=== PATIENT | male | born 2000 | race Caucasian/White ===

== ENCOUNTER 2018-08-28 00:56 | Emergency (ER) | payer OTHER, SELFPAY ==
[2018-08-28 00:56] VITALS: BP 129/90; PULSE 80; RESP 16; TEMP 36.7; O2SAT 97; BMI 20.2
--- NOTE | 2018-08-28 01:00 | RAD_ITS ---
STUDY: X-RAY - RIGHT HAND REASON FOR EXAM: Male, 18 years old. laceration to posterior rt 3rd MCP joint TECHNIQUE: 3 view(s) of the hand. COMPARISON: None. FINDINGS: Normal radiocarpal articulation. Normal distal radioulnar joint. Normal visualized carpal bones. Normal carpal articulations Normal carpometacarpal articulation of the thumb. Normal second through fifth carpometacarpal joints. Normal metacarpi. There is a healed fracture of the fourth metacarpal with hardware from prior internal fixation in position. Normal metacarpophalangeal joint of the thumb. Normal interphalangeal joint of the thumb. Normal proximal and distal phalanges of the thumb. Normal metacarpophalangeal joints of the second through fifth fingers. Normal proximal and distal interphalangeal joints of the second through fifth fingers. Normal phalanges of the second through fifth fingers. The soft tissue structures are unremarkable. RAD/Hand Min 3 Views IMPRESSION: No acute bone injury of the hand. Electronically Signed: Tigist Hernandez MD at 1:36 EST Tel , Service support ,
--- NOTE | 2018-08-28 01:03 | ED.VISSUMM ---
- ER Visit Summary Date of Service: 08/28/18 Chief Complaint: Right hand injury History of Present Illness: The patient is a 18 M who hit the back of his right hand on a piece of sheet metal air vent at work. He has a laceration of the third MCP joint. He is right-hand dominant. He has full range of motion with no paresthesias. He is unsure of his last tetanus update. Physical Examination: Vital signs unremarkable. Right upper extremity examination significant for 2 cm U-shaped laceration over the right third MCP joint. He has full range of motion. Normal cap refill and sensation distally. Test Results: Right hand x-ray is unremarkable. Emergency Department Course and Treatment: Wound is anesthetized with 2 cc of 1% lidocaine. Wound was thoroughly irrigated. Skin is closed with 4 simple interrupted sutures of 5-0 nylon. Dressing is applied. Tetanus is updated. Treatment Plan: Follow up with [facility] in 5-7 days for suture removal Disposition: Discharge Impression: Right hand laceration status post suture This note was generated with [employer] dictation software. It may contain incorrect words, spelling, and punctuation that were not noted in review of the chart prior to signing ED Disposition - Plan for ED Patient: Chief Complaint: Laceration Referrals: Care Physician,No Primary [Primary Care Provider] -
--- NOTE | 2018-08-28 01:48 | ED.DEP ---
ED Disposition - Plan for ED Patient: Disposition: Home or Assisted Living Chief Complaint: Laceration Instructions: ED Laceration Hand Referrals: [facility] [GROUP OF PHYSICIANS] - 7 Days for suture removal
[2018-08-28] MEDS: Diphth,Pertuss(Acell),Tet Vac 0.5 ML Vial IM (01:57)
[2018-08-28 02:06] VITALS: BP 123/70; PULSE 64; RESP 12; O2SAT 95
== END 2018-08-28 02:06 | disposition home or self-care (01) ==
LOC: ED 02:03
PROVIDERS: Emergency Provider Emergency Medicine
DX: S61.411A Laceration without foreign body of right hand, initial encounter (principal); Z23 Encounter for immunization; Z72.0 Tobacco use; W26.9XXA Contact with unspecified sharp object(s), initial encounter; Y93.89 Activity, other specified; Y92.89 Other specified places as the place of occurrence of the external cause; Y99.0 Civilian activity done for income or pay
CPT/HCPCS: 12001; 73130; 90471; 90715; 99283

== ENCOUNTER → 2020-08-11 17:52 | Outpatient (CLI) | payer MEDICAID, SELFPAY | PROVIDERS: Referring Provider Nurse Practitioner Family; Visit Provider Nurse Practitioner Family | DX: Z20.828 Contact with and (suspected) exposure to other viral communicable diseases (principal); J02.9 Acute pharyngitis, unspecified | CPT/HCPCS: 87635; C9803; U0003 ==

== ENCOUNTER 2021-02-08 18:59 | Emergency (ER) | payer MEDICAID, SELFPAY ==
[2021-02-08 18:59] VITALS: BP 150/90; PULSE 95; RESP 16; TEMP 36.1; O2SAT 96; BMI 22.4
--- NOTE | 2021-02-08 21:58 | ED.RN ---
patient went out to car around 1999 to see his girlfriend and didnt come back it. Then was marked as LWBS. Pt now came back in stating he had to take his girlfriend home because she wasn't feeling well. now wishes to be seen. original encounter pulled back up.
[2021-02-08 21:59] VITALS: BP 140/84; PULSE 109; RESP 18; TEMP 36.1; O2SAT 98
--- NOTE | 2021-02-08 22:06 | ED.VIS.GEN ---
History of Present Illness Chief Complaint: Ear Problem Informant: Patient Onset: Hours Context: Sudden Onset Timing: Continuous Quality: Popping sensation and blood Location: Left ear Current Severity: Mild Maximum Severity: Moderate Worsened by: Nothing Relieved by: Nothing Associated Symptoms: Decreased hearing after using Q-tip Narrative: Patient is 20-year-old male who presents with a popping sensation in his ear followed by blood. He states he attempted to clean the wax out with a Q-tip. He states the popping and bleeding started before he attempted to clean the wax out of his ears. He does have mild nasal congestion. He denies fever or chills. He denies headache. He denies photophobia or visual change. He denies neck pain or neck stiffness. He denies sore throat. He denies change in voice. He denies cough. He denies myalgias or arthralgias. Prior similar symptoms: No Recent Illness/Hospitalization: No - Past Medical History (1) No significant past medical history Status: Acute Past Medical History - Allergies and Home Meds Allergies/Adverse Reactions: Allergies No Known Allergies Allergy (Verified 02/08/21 19:01) Primary Care Physician: Care Physician,No Primary [Primary Care Provider] - Prior records reviewed: No Past Medical History: None Surgical History: no surgical history Lives: Alone Smoking Status: Former smoker Alcohol: Rare Drugs: None Review of Systems General: Denies: Chills, Fever, Malaise Eyes: Denies: Visual changes - bilaterally, Blurred Vision - bilaterally ENT: Reports: Left ear pain. Denies: Rhinorrhea, Sore throat Cardiovascular: Denies: Chest pain, Palpitations Respiratory: Denies: Dyspnea, Cough, Dyspnea on exertion Gastrointestinal: Denies: Abdominal pain, Nausea, Vomiting Musculoskeletal: Denies: Myalgias, Arthralgias, Neck pain Skin: Denies: Rash Neurological: Denies: Headache Physical Exam Vital Signs/Narrative: Vital Signs Temp Pulse Resp BP Pulse Ox 02/08/21 21:59 96.9 F L 109 H 18 140/84 H 98 02/08/21 18:59 97 F L 95 16 150/90 H 96 Inital Vital Signs reviewed: Yes General: Well nourished, Well developed, No Acute Distress Head: Normocephalic, Atraumatic Eyes: Perrl, Pale conjunctiva ENT: Moist mucous membranes, No rhinorrhea, - - Unable to visualize left TM due to cerumen impaction. Neck: Supple, Nontender, No lymphadenopathy, No JVD Cardiovascular: Regular rate, Regular rhythm, No murmurs, Normal S1, Normal S2 Respiratory: No distress, CTA bilaterally Skin: Normal color, No rash Neurological: Alert, Oriented x3, Cranial nerves II-XII grossly intact, Normal Strength, Normal Sensation Psychological: Normal affect Diagnostic/Tx/Re-eval - Medical Decision Making Patient occluded the left external auditory canal when he attempted to clean the wax out. We will have nurse Debrox and will attempt to remove the cerumen. Once this has been performed will visualize the left TM to determine if there is a perforation and the source of the bleeding. Approximately 25 to 30% of the wax was removed. The TM is visualized. There is slight erythema. Bleeding is from the external auditory canal due to trauma. He does have pain with pushing on the tragus and pulling on the auricle. He probably has developed this secondary otitis externa/infection. Will treat with otic drops. ED Disposition - Plan for ED Patient: Disposition: Home or Assisted Living Diagnosis: Otitis externa of left ear, Hemorrhagic otitis externa of left external auditory canal, Impacted cerumen of left ear Instructions: ED External Ear Infection (Adult), CERUMEN IMPACTION, Home Care Prescriptions: Neomyc/Colist/Hydrocort/Thonzn [Cortisporin-Tc Ear Suspension] 5 ml OT 4X/DAY #1 drops.susp Transmission Status: Pending to [id number] Referrals: Care Physician,No Primary [Primary Care Provider] - Dacia Burris DO [STAFF PHYSICIAN] - 1 Week if not improving
[2021-02-08] MEDS: Carbamide Peroxide 15 ML Bottle 5 DRP OTIC (22:15)
== END 2021-02-08 23:08 | disposition home or self-care (01) ==
PROVIDERS: Emergency Provider Emergency Medicine
DX: H60.92 Unspecified otitis externa, left ear (principal); H61.23 Impacted cerumen, bilateral; Z87.891 Personal history of nicotine dependence
CPT/HCPCS: 99283

== ENCOUNTER 2021-02-10 13:15 | Emergency (ER) | payer MEDICAID, SELFPAY ==
[2021-02-10 13:15] VITALS: BP 123/90; PULSE 107; RESP 18; TEMP 36.1; O2SAT 98; BMI 22.1
--- NOTE | 2021-02-10 13:22 | RAD_ITS ---
STUDY: X-RAY - RIGHT HAND REASON FOR EXAM: Right hand pain, laceration, right hand injury. TECHNIQUE: 3 view(s) of the hand. COMPARISON: Radiographs 08/28/2018. FINDINGS: Normal radiocarpal articulation. Normal distal radioulnar joint. Normal visualized carpal bones. Normal carpal articulations Normal carpometacarpal articulation of the thumb. Normal second through fifth carpometacarpal joints. There is orthopedic hardware of the fourth metacarpal transfixing a healed fracture. Normal metacarpophalangeal joint of the thumb. Normal interphalangeal joint of the thumb. Normal proximal and distal phalanges of the thumb. Normal metacarpophalangeal joints of the second through fifth fingers. Normal proximal and distal interphalangeal joints of the second through fifth fingers. Normal phalanges of the second through fifth fingers. The soft tissue structures are unremarkable. RAD/Hand Min 3 Views IMPRESSION: Healed fourth metacarpal fracture with orthopedic hardware. Electronically Signed: Redd Wright MD at 13:58 EDT Tel , Service support ,
--- NOTE | 2021-02-10 13:31 | ED.DCSUM_ITS ---
- ER Visit Summary Date of Service: 02/10/21 Chief Complaint: Hand injury and laceration History of Present Illness: The patient is a 20 M medical history of a right hand metacarpal fracture which she had surgically repaired. States his tetanus is up-to-date in the last several years. He was showing a cabinet when hand on the cabinet caused a laceration to the palmar aspect of his hand bowel by the base. This occurred within the last hour. He is complaining of pain in the laceration. Denies any other injuries. Physical Examination: Well-appearing young male. Accompanied by significant other. Vital signs stable afebrile. HEENT exam unremarkable. Lungs are clear. Heart regular rhythm. Right hand at the base of his right hand he has a rectangular wound that will need to be cleaned, explored and closed. There is a flap of skin on the wound. There is no gross bony deformity. He is able to open close his hand and flex extend his right wrist. He has had prior surgery of his right hand mid metacarpal. Hand is neurovascularly intact. Otherwise exam unremarkable. Test Results: Right hand x-ray 3 views interpreted by myself showed no acute abnormality. No fracture. Prior hardware looks good. Also read by the radiologist and agrees. Discussed results with patient. Emergency Department Course and Treatment: Right palm rectangular laceration with flap. Patient removed the flap of skin. Locally anesthetized with let and then subcu lidocaine. Washed with Shur-Clens. Explored. Rinse with saline. Irrigated well. Closed using 4 simple interrupted 5-0 Ethilon sutures. Proper hemostasis wound closure obtained. Patient tolerated procedure well. Treatment Plan: Wound care. Return for any signs of infection. Suture removal in 7 to 10 days. Disposition: dc Impression: Right hand laceration with ER repair of 2-1/2 to 3 cm This note was generated with [employer] dictation software. It may contain incorrect words, spelling, and punctuation that were not noted in review of the chart prior to signing ED Disposition - Plan for ED Patient: Referrals: Care Physician,No Primary [Primary Care Provider] -
[2021-02-10] MEDS: Lidocaine/Epi/Tetracaine 50 ML 1 APPLIC TOPICAL (13:57)
[2021-02-10] MEDS: Ibuprofen 600 MG Tablet PO (13:58)
[2021-02-10] MEDS: Lidocaine 1% (20 ml mdv) 20 ML Vial 6 ML INFILT (14:17)
--- NOTE | 2021-02-10 15:11 | ED.DEP ---
ED Disposition - Plan for ED Patient: Disposition: Home or Assisted Living Instructions: ED Laceration, Hand: All Closures Referrals: Ismael Quiros MD [STAFF PHYSICIAN] - 10 Day for suture removal Additional Instructions: Watch for any signs of infection such as pus, red streaks, fever, swelling or increasing pain is seen return. Ice and elevate to decrease pain and swelling. Tylenol and Motrin for pain. Clean daily with soap and water or peroxide and water. Dry carefully. Do not soak. Suture removal in 10 days.
[2021-02-10 15:27] VITALS: PULSE 100; RESP 16; O2SAT 98
== END 2021-02-10 15:28 | disposition home or self-care (01) ==
PROVIDERS: Emergency Provider Emergency Medicine
DX: S61.411A Laceration without foreign body of right hand, initial encounter (principal); X58.XXXA Exposure to other specified factors, initial encounter
CPT/HCPCS: 12002; 73130; 99284

== ENCOUNTER 2021-04-24 00:12 | Emergency (ER) | payer MEDICAID, SELFPAY ==
[2021-04-24 00:12] VITALS: BP 145/78; PULSE 85; RESP 16; TEMP 36.7; BMI 23.7
--- NOTE | 2021-04-24 00:15 | RAD_ITS ---
STUDY: X-RAY - RIGHT HAND REASON FOR EXAM: Male, 21 years old. trauma TECHNIQUE: 3 view(s) of the hand. COMPARISON: 02/10/2021. FINDINGS: Normal radiocarpal articulation. Normal distal radioulnar joint. Normal visualized carpal bones. Normal carpal articulations Normal carpometacarpal articulation of the thumb. Normal second through fifth carpometacarpal joints. Postoperative changes with fixation plates of the fourth metacarpal bone. Otherwise normal metacarpi. Normal metacarpophalangeal joint of the thumb. Normal interphalangeal joint of the thumb. Normal proximal and distal phalanges of the thumb. Normal metacarpophalangeal joints of the second through fifth fingers. Normal proximal and distal interphalangeal joints of the second through fifth fingers. Normal phalanges of the second through fifth fingers. The soft tissue structures are unremarkable. RAD/Hand Min 3 Views IMPRESSION: Postoperative changes at the fourth metacarpal bone as described. Otherwise normal x-ray of the right hand. Specifically, no acute fracture or subluxation. Electronically Signed: Jade Morris MD at 0:37 EDT , Service support ,
--- NOTE | 2021-04-24 00:33 | EX.ED.UPPERE ---
HPI History of Present Illness Chief Complaint: Upper Extremity Injury Detail of Chief Complaint: Right hand pain Informant: patient Occured/Mechanism Comment: Punched a microwave Onset/Context/Timing Onset: Today Current Severity: Mild Maximum Severity: Moderate Narrative Narrative: Patient presents due to concern for fracture of the right hand. Patient states he was upset and punched a microwave. He has had prior fracture to this hand in the past and had surgery to his fourth metacarpal. He is concerned he may have broken the fifth. PFSH PFS Medical History Bipolar disorder Depression Home Medications NK 02/10/21 [History Last Taken Unknown] Allergy/AdvReac Type Severity Reaction Status Date / Time No Known Allergies Allergy Verified 04/24/21 00:23 Social History Smoking Status: Former smoker ROS ROS ED Constitutional Constitutional ED: Denies chills or fever(s) Eyes Eyes: Denies change in vision ENT ENT ED: Denies sore throat Cardiovascular Cardiovascular: Denies chest pain Respiratory/Chest Respiratory/Chest: Denies cough or dyspnea Gastrointestinal Gastrointestinal: Denies abdominal pain, diarrhea, nausea or vomiting Genitourinary Genitourinary ED: Denies dysuria Musculoskeletal Musculoskeletal: Reports other Details: Right hand pain ; Denies back pain Integumentary Denies rash Neurologic Neurologic: Denies headache(s) or weakness Psychiatric Psychiatric: Denies anxiety or depression Endocrine Endocrinology: Denies polydipsia or polyuria Allergic/Immunologic Allergic/Immunologic ED: Denies urticaria EXAM Physical Exam Const Vital Signs: 04/24/21 00:12 Temperature 98.0 F Temperature Source Temporal Pulse Rate 85 Respiratory Rate 16 Blood Pressure 145/78 H Blood Pressure Mean 100 Positive well nourished and well developed General Appearance ED: well developed HEENT normocephalic Eyes PERRL and EOMs intact bilaterally Neck supple Chest Wall inspection of chest normal and palpation of chest normal Resp normal respiratory effort and clear to auscultation bilaterally Cardio regular rate and regular rhythm GI non-tender Palpation: soft Extremity Extremity Narrative: Abrasions noted over the knuckles of the right hand. No full-thickness laceration requiring repair. Edema and tenderness over the fifth metacarpal. Well-healed surgical scar over the fourth metacarpal. Neuro oriented x3 and no sensory deficits noted Sensorium / Orientation: alert Motor Exam: strength 5/5 throughout Skin Skin Narrative: Abrasions as noted above. MDM MDM MDM Narrative Medical decision making narrative: Right hand x-rays were obtained per nursing protocol. Radiography Diagnostic Testing: Radiology Impression Hand X-Ray 04/24/21 00:15 IMPRESSION: Postoperative changes at the fourth metacarpal bone as described. Otherwise normal x-ray of the right hand. Specifically, no acute fracture or subluxation. Electronically Signed: Jade Morris MD at 0:37 EDT , Service support , Treatment and Re-Evaluation Comments:: I am interpretation of the x-ray no acute fracture is noted. Radiology interpretation is reviewed. Patient updated. Wounds are cleansed and dressed. Patient is referred to local PCP to establish primary care. Discharge Plan Triage Chief Complaint: Upper Extremity Injury ED Provider: Jailene Rodríguez Dx/Rx/DC Orders Clinical Impression: Contusion of hand, right Instructions: ED Hand Contusion Prescriptions: No Action NK RF: 0 Primary Care Provider: Care Physician,No Primary Referrals: Gissel Frank MD [STAFF PHYSICIAN] - As Needed Care Physician,No Primary [Primary Care Provider] - Disposition Disposition: Home, Self Care Discharge Date/Time: 04/24/21 01:03
== END 2021-04-24 01:03 | disposition home or self-care (01) ==
LOC: ED 00:53
PROVIDERS: Emergency Provider Emergency Medicine
DX: S60.221A Contusion of right hand, initial encounter (principal); X58.XXXA Exposure to other specified factors, initial encounter; Z87.891 Personal history of nicotine dependence
CPT/HCPCS: 73130; 99282

== ENCOUNTER 2021-06-20 17:57 | Emergency (ER) | payer MEDICAID, SELFPAY ==
[2021-06-20 17:58] VITALS: BP 134/85; PULSE 97; RESP 16; TEMP 36.7; O2SAT 97; BMI 22.1
--- NOTE | 2021-06-20 19:57 | EKG12_ITS ---
Test Reason : DYSRHYTHMIA Blood Pressure : / mmHG Vent. Rate : 069 BPM Atrial Rate : 069 BPM P-R Int : 114 ms QRS Dur : 088 ms QT Int : 362 ms P-R-T Axes : -07 075 055 degrees QTc Int : 387 ms Normal sinus rhythm with sinus arrhythmia Normal ECG No previous ECGs available Confirmed by SCOTTY MCCOY, ROMELIA ([id number]), editor producer ABI ACUNA ([id number]) on 06/28/2021 8:42:07 AM Referred By: MICHAEL Confirmed By:YESENIA FAJARDO MD
--- NOTE | 2021-06-20 20:04 | EX.ED.DYSGE1 ---
HPI History of Present Illness Chief Complaint: Syncope Detail of Chief Complaint: Passed out Informant: patient and spouse/S.O. Onset/Context/Timing Onset: Today and Hours Current Severity: Gone Maximum Severity: Mild Narrative Narrative: 21-year-old male denies any segment past medical history. States he is currently on no medications. Denies any cardiac disease. No history of seizures. Said when he was a child he would pass out from time to time. Especially in the hot shower. This morning around 4 AM he went to the bathroom he was urinating felt lightheaded passed out hit his head. Girlfriend was there. She denies seizure activity. Said his eyes were open and he just looked dazed. He was not responding for about 30 seconds to a minute. He denies any complaints currently. No headache. No neck pain. No recent illness. Prior similar symptoms: Yes Recent Illness/Hospitalization: No PFSH PFS Medical History Bipolar disorder Depression Home Medications NK 02/10/21 [History Last Taken Unknown] Allergy/AdvReac Type Severity Reaction Status Date / Time No Known Allergies Allergy Verified 06/20/21 18:01 Surgical History Hx of tonsillectomy Social History Smoking Status: Current every day smoker tobacco type: e-cigarettes ROS ROS ED ROS Narrative Patient denies recent illness. Review of Systems ROS Unobtainable: Denies due to encephalopathy Constitutional Constitutional ED: Denies chills or fever(s) Eyes Eyes: Denies change in vision ENT ENT ED: Denies ear pain or sore throat Cardiovascular Cardiovascular: Denies chest pain or palpitations Respiratory/Chest Respiratory/Chest: Denies cough or dyspnea Gastrointestinal Gastrointestinal: Denies abdominal pain, diarrhea, nausea or vomiting Genitourinary Genitourinary ED: Denies dysuria Musculoskeletal Musculoskeletal: Denies myalgias Integumentary Denies rash Neurologic Neurologic: Denies headache(s) Psychiatric Psychiatric: Denies depression Endocrine Endocrinology: Denies polyuria Allergic/Immunologic Allergic/Immunologic ED: Denies urticaria EXAM Physical Exam Narrative Exam Narrative: 18-year-old male vital signs stable afebrile. Exam completely normal. No signs of trauma. Pupils round react light. Neck nontender. Full range of motion. Lungs clear to auscultation bilaterally. Heart regular rate and rhythm no murmur. Chest were nontender. Abdomen soft nontender. Moving all 4 extremities. Neurovascular intact. 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 Back nontender. Neuro exam normal. NIH is 0. Fingertip to nose and [id number] within normal limits. Acting normal. Normal speech. Const Vital Signs: 06/20/21 17:58 06/20/21 20:23 06/20/21 20:24 Temperature 98.1 F Temperature Source Temporal Pulse Rate 97 Pulse Rate [Lying] 75 Pulse Rate [Sitting] 81 Pulse Rate [Standing] 78 Respiratory Rate 16 Respiratory Effort Normal Non-Labored Respiratory Pattern Normal Blood Pressure 134/85 H Blood Pressure [Lying] 131/79 H Blood Pressure [Sitting] 124/88 H Blood Pressure [Standing] 127/84 H Blood Pressure Mean 101 Blood Pressure Mean [Lying] 96 Blood Pressure Mean [Sitting] 100 Blood Pressure Mean [Standing] 98 Pulse Ox 97 Oxygen Delivery Method Room Air Positive well nourished and well developed; Negative for obese, cachectic, contractures or unkempt General Appearance ED: well developed and NAD; Negative for unkempt, cachectic, contractures, cyanotic or diaphoretic Nutritional Appearance: Negative for cachectic or obese HEENT Reports moist mucous membranes Negative for trauma or tenderness Eyes PERRL and EOMs intact bilaterally Neck no lymphadenopathy, supple and no JVD General: Negative for tenderness Chest Wall inspection of chest normal and palpation of chest normal Resp normal respiratory effort and clear to auscultation bilaterally Effort and Inspection: Negative for pain with movement Auscultation: Negative for rales, rhonchi or wheezes Cardio regular rate, regular rhythm, S1 normal heart sound, S2 normal heart sound and no murmurs GI normal to inspection, nondistended, normoactive bowel sounds, non-tender, non-distended and no masses Inspection: Negative for abdominal distention Auscultation: normoactive bowel sounds Palpation: soft; Negative for tender, guarding or rebound tenderness present Back/Spine no CVA tenderness General Back: Negative for CVA tenderness Cervical Spine: Negative for cervical spine tenderness Thoracic Spine / Upper Back: Negative for thoracic spinal tenderness or paraspinal muscle tenderness Lumbar Spine / Lower Back: Negative for lumbar spinal tenderness Extremity normal to inspection General Extremety ED: Negative for edema or tenderness General Extremity: Negative for edema Neuro oriented x3, CN's II-XII intact bilaterally and no sensory deficits noted Sensorium / Orientation: alert; Negative for orientation impaired, lethargic or stuporous Sensory Exam: No sensory level loss detected Motor Exam: strength 5/5 throughout; Negative for general weakness or strength abnormal Psych mental status grossly normal Appearance: Negative for unkempt Attitude: No agitated Mood & Affect: Negative for depressed, anxious or tearful Skin no rashes or lesions noted and no wounds MDM MDM MDM Narrative Medical decision making narrative: Young male with micturition syncope. Exam normal. Will obtain an EKG and orthostatic vital signs those are fine to be discharged home. He has a completely normal exam currently. Rhythm Strip Rhythm Strip: Sinus Rhythm Rate: 69 Ectopy: None EKG Initial EKG: Attestation: I personally reviewed and interpreted this EKG as follows: Interpretation: Sinus Rhythm and No Acute Injury Pattern Comments: Normal sinus rhythm rate of 69 no acute signs of FL or ischemia. No dysrhythmia. Prior EKG tracings: not available for review Discharge Plan Triage Chief Complaint: Syncope ED Provider: Marquez Montoya Dx/Rx/DC Orders Clinical Impression: Micturition syncope Instructions: Understanding Vasovagal Syncope Prescriptions: No Action NK RF: 0 Primary Care Provider: Care Physician,No Primary Referrals: Aditya Esquivel MD [STAFF PHYSICIAN] - As Needed Care Physician,No Primary [Primary Care Provider] - Activity Restrictions/Additional Instructions: Follow-up with your doctor if not improving. Return if feeling worse. Disposition Disposition: Home, Self Care
[2021-06-20 20:23] VITALS: BP 124/88; BP 127/84; BP 131/79; PULSE 75; PULSE 78; PULSE 81
== END 2021-06-20 21:00 | disposition home or self-care (01) ==
LOC: ED 20:32
PROVIDERS: Emergency Provider Emergency Medicine
DX: R55 Syncope and collapse (principal); F17.290 Nicotine dependence, other tobacco product, uncomplicated
CPT/HCPCS: 93005; 99283